=== PATIENT | male | born 1970 | race Two or more races ===

== ENCOUNTER 2023-04-20 21:44 | Inpatient (IN) | payer MEDICARE, OTHER ==
[~2023-04-20] VITALS: Ht 177.8 cm; Wt 90.7 kg
[2023-04-20 21:55] VITALS: O2SAT 100
--- NOTE | 2023-04-20 22:02 | NUR ---
URINE SPECIMEN COLLECTED AND SENT TO LAB.
--- NOTE | 2023-04-20 22:02 | NUR ---
COVID SWAB COLLECTED AND SENT TO LAB.
--- NOTE | 2023-04-20 22:02 | NUR ---
PATIENT PROVIDED WITH TWO WARM BLANKETS FOR COMFORT.
--- NOTE | 2023-04-20 22:09 | NUR ---
PT PROVIDED WITH WATER FOR COMFORT.
--- NOTE | 2023-04-20 22:10 | NUR ---
WIRE DRAWING MACHINE OPERATOR AT BEDSIDE
[2023-04-20 22:34] LABS: BILIRUBIN,URINE NEGATIVE (NEGATIVE); COLOR,URINE YELLOW (YELLOW); LEUKOCYTE ESTERASE ,URINE NEGATIVE (NEGATIVE); NITRITE, URINE NEGATIVE (NEGATIVE); PH,URINE 6.5 (5.0-8.0); PROTEIN,URINE NEGATIVE (NEGATIVE); UGLUCOSE NEGATIVE (NEGATIVE); UROBILINOGEN,URINE 0.2 EU/dL (0.2)
[2023-04-20 22:34] LABS: BASOPHILS % (AUTO) 0.7 % (0.0-2.0); EOSINOPHILS % (AUTO) 0.3 % (0.0-6.0); HEMATOCRIT 34 % (39-51); HEMOGLOBIN 11.6 g/dL (13.5-17.5); LYMPHOCYTES # (AUTO) 1.8 K/uL (0.8-4.8); LYMPHOCYTES % (AUTO) 36.1 % (20.0-44.0); MEAN CORPUSCULAR HGB CONC 34 g/dl (31.0-36.0); MEAN CORPUSCULAR VOLUME 91 fL (80-96); MONOCYTES # (AUTO) 0.5 K/uL (0.1-1.30); MONOCYTES % (AUTO) 10.2 % (2.0-12.0); NEUTROPHILS # (AUTO) 2.7 K/uL (1.8-8.9); NEUTROPHILS % (AUTO) 52.7 % (43.0-81.0); PLATELET COUNT (AUTO) 177 K/uL (150-450); RED BLOOD CELL COUNT(AUTO) 3.72 MIL/uL (4.5-6.0)
[2023-04-20 22:47] LABS: CALCIUM, SERUM 9.2 mg/dL (8.5-10.1); CARBON DIOXIDE 27 mmol/L (21-32); CHLORIDE 105 mmol/L (98-107); GLUCOSE 100 mg/dL (74-106); POTASSIUM 3.9 mmol/L (3.5-5.1); SODIUM SERUM 139 mmol/L (136-145); UREA NITROGEN, BLOOD 9 mg/dL (7-18)
[2023-04-20 22:55] LABS: ALANINE AMINOTRANSFERASE 35 U/L (12-78); ALBUMIN 3.6 g/dL (3.4-5.0); ALCOHOL, BLOOD < 3 mg/dL (0-10); ALKALINE PHOSPHATASE 69 U/L (46-116); ASPARTATE AMINOTRANSFERASE 14 U/L (15-37); BILIRUBIN,DIRECT 0.1 mg/dL (0.0-0.2); BILIRUBIN,TOTAL 0.4 mg/dL (0.2-1.0); TOTAL PROTEIN, SERUM 6.6 g/dL (6.4-8.2)
--- NOTE | 2023-04-20 23:30 | NUR ---
PT PROVIDED WITH APPLE JUICE FOR COMFORT.
[2023-04-21] MEDS ORDERED: NITR0.4T48 SL (00:16)
[2023-04-21] MEDS ORDERED: ZOLP5TAB8 PO (00:16)
[2023-04-21] MEDS ORDERED: VANC1FRO2 IV (00:16)
[2023-04-21] MEDS ORDERED: LEVE1000 PO (00:16)
[2023-04-21] MEDS ORDERED: QUET100T PO (00:16)
[2023-04-21] MEDS ORDERED: CALC-494 PO (00:16)
[2023-04-21] MEDS ORDERED: ACET325T53 PO (00:16)
[2023-04-21] MEDS ORDERED: IPRA3AMP23 IH (00:16)
[2023-04-21] MEDS ORDERED: CLON1PAT13 TD (00:16)
[2023-04-21] MEDS ORDERED: METO-357 PO (00:16)
[2023-04-21] MEDS ORDERED: MELA3TAB41 PO (00:16)
[2023-04-21] MEDS ORDERED: LORA-259 PO (00:16)
[2023-04-21] MEDS ORDERED: ENOX40DI SQ (00:16)
--- NOTE | 2023-04-21 01:17 | NUR ---
PT TO GO TO ROOM 220-B
--- NOTE | 2023-04-21 01:30 | NUR ---
REPORT GIVEN TO JULIAN DIAZ
[2023-04-21] MEDS ORDERED: BLOOD SUGAR DIAGNOSTIC 1 EACH STRIP IN ONE (02:30)
[2023-04-21] MEDS: ACETAMINOPHEN 325 MG TABLET PO PRN ×2 (02:30→11:01)
[2023-04-21] MEDS ORDERED: MAGNESIUM HYDROXIDE 30 ML UDC PO PRN (02:30)
[2023-04-21] MEDS ORDERED: MAG HYDROX/AL HYDROX/SIMETH 30 ML UDC PO PRN (02:30)
[2023-04-21] MEDS ORDERED: LORAZEPAM 1 MG TABLET PO PRN (02:30)
[2023-04-21 03:27] VITALS: BP 149/81; TEMP 97.4
--- NOTE | 2023-04-21 03:28 | NUR ---
GPS RN NOTE, PATIENT HAS A C/O OF CHRONIC MOUTH AND TOOTH PAIN AT 7 OUT 10 AND IS REQUESTING A STRONGER MEDICATION THAN TYLENOL. PAGED [facility] AND INFORMED DR GOLDMAN OF MY FINDINGS. DR GOLDMAN ORDERED IBUPROFEN 800MG PO Q8HR PRN. ALL ORDERS NOTED AND CARRIED OUT. WILL CONTINUE TO MONITOR THIS PATIENT WITH THE HELP OF STAFF.
[2023-04-21] MEDS ORDERED: IBUPROFEN 200 MG TABLET PO PRN (03:30)
--- NOTE | 2023-04-21 04:17 | NUR ---
MOLD PULLER ADMISSION NOTE: ADMITTED A 52-Y/O, MALE, FROM -[facility]. INITIALLY PT CAME FROM [facility]. ADMITTED ON A 5150 HOLD AND DANGER TO SELF. PER HOLD, PT. ADMITTED DUE TO SUICIDAL IDEATION AND WITH PATIENT PLANS TO DRINK POISON.PATIENT IS NEEDY ,DEMANDING,HYPERVERBAL. UPON FACE TO FACE EVALUATION, PATIENT IS ALERT AND ORIENTED X4, ON ROOM AIR .PATIENT ASSISTED ON TURNING AND REPOSITIONING Q2H FOR COMFORT AND CIRCULATION. SKIN ASSESSMENT DONE. SKIN INTACT. ALL BELONGINGS WERE CHECKED FOR CONTRABAND. PATIENT'S RIGHTS WERE DISCUSSED AND BOOKLET WAS GIVEN. CONTACTED DR. BUENROSTRO AND HOSPITALIST DR. VACA AND INFORMED THEM OF THE ADMISSION.PATIENT ORIENTATED TO ROOM ,FLOOR AND STAFF.PATIENT EDUCATED ON THE USE OF CALL MIXON. BED IN LOW AND LOCKED POSITION. PT UNABLE TO SIGN ADMITTING DOCUMENTS D/T AGGRESSIVE BEHAVIOR. SAFETY PRECAUTIONS MAINTAINED. WILL CONTINUE TO MONITOR Q15 MINS FOR MOOD, SAFETY AND BEHAVIOR.
--- NOTE | 2023-04-21 07:30 | NUR ---
RN OPENING NOTES RECEIVED PT ON A 5150 HOLD AND DANGER TO SELF. PER HOLD, PT. ADMITTED DUE TO SUICIDAL IDEATION AND WITH PATIENT PLANS TO DRINK POISON.PATIENT IS NEEDY ,DEMANDING,HYPERVERBAL. UPON FACE TO FACE EVALUATION, PATIENT IS ALERT AND ORIENTED X4, ON ROOM AIR .PATIENT ASSISTED ON TURNING AND REPOSITIONING Q2H FOR COMFORT AND CIRCULATION. WILL ADMINSITER ALL SCHEDULED MEDS ORDERED. WILL CONTINUE TO MONITOR FOR YEISON AND BEHAVIOR CHANGE.
[2023-04-21 08:00] VITALS: BP 140/76; TEMP 98; O2SAT 97
--- NOTE | 2023-04-21 10:02 | NUR ---
PRISCILLA Initial Discharge Note: Patient currently resides at [facility] located at [address] [place] [address]; ([phone]). PRISCILLA spoke with Mackenzie ozuna who stated that pt is welcomed back. PRISCILLA will discuss treatment plan with family. PRISCILLA will work with the MD, family, and treatment team.
--- NOTE | 2023-04-21 10:02 | NUR ---
PRISCILLA Clinical Note: Pt placed on a 5150 hold for danger to himself. Per hold, pt had a suicidal ideation and wanted to end his life on OD on poison. Patient currently resides at [facility] located at [address] [place] [address]; ([phone]). PRISCILLA spoke with Mackenzie ozuna who stated that pt is welcomed back. PRISCILLA will discuss treatment plan with family.
[2023-04-21] MEDS ORDERED: hydrOXYzine PAMOATE 25 MG CAPSULE PO PRN (10:30)
[2023-04-21] MEDS: clonazePAM 0.5 MG TABLET PO SCH ×3 (11:00→17:52)
[2023-04-21] MEDS: OLANZAPINE 2.5 MG TABLET PO SCH ×2 (11:01→17:52)
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
--- NOTE | 2023-04-21 12:53 | NUR ---
RN NOTES SEEN BY DR. OLIVAS, ORDERED TO D/C NELSON AND TAKE OUT MIDLINE.
--- NOTE | 2023-04-21 12:56 | NUR ---
RN NOTES REMOVED MIDLINE ACCESS. PRESSURE DRESSING APPLIED. NO SIGNS AND SYMPTOMS OF BLEEDING.
--- NOTE | 2023-04-21 12:59 | NUR ---
RN NOTES INFORMED DR. OLIVAS FOR MEDICATION RECONCILIATION
[2023-04-21] MEDS: DIVALPROEX SODIUM 250 MG TABLET.DR PO SCH ×2 (13:59→17:52)
[2023-04-21] MEDS ORDERED: IPRATROPIUM NEB FS 0.5 MG/2.5 ML AMPUL.NEB NEB PRN (14:30)
[2023-04-21] MEDS ORDERED: NITROGLYCERIN 0.4 MG/TAB BOTTLE SL SCH (14:30)
[2023-04-21] MEDS ORDERED: ALBUTEROL FS 2.5 MG/0.5 ML VIAL.NEB NEB PRN (14:30)
[2023-04-21] MEDS ORDERED: ACETAMINOPHEN 325 MG TABLET PO PRN (14:30)
[2023-04-21] MEDS: LEVETIRACETAM (250 MG) 250 MG TABLET PO SCH ×2 (15:00→21:21)
[2023-04-21] MEDS: CLONIDINE HCL 0.2MG/24H PTWK 1 EA PATCH TD SCH (15:35)
[2023-04-21 16:00] VITALS: BP 156/86; TEMP 98; O2SAT 96
[2023-04-21] MEDS: METOPROLOL SUCCINATE 50 MG TAB.SR.24H PO SCH (17:52)
--- NOTE | 2023-04-21 18:11 | NUR ---
GPS RN OPENING NOTES PT RESTING IN BED, ON A 5150 HOLD AND DANGER TO SELF DUE TO SUICIDAL IDEATION. PATIENT IS COOPERATIVE/UNCOOPERATIVE, EASILY IRRITABLE, VERY LABILE. PATIENT IS ALERT AND ORIENTED X4, ON ROOM AIR .PATIENT ASSISTED ON TURNING AND REPOSITIONING Q2H FOR COMFORT AND CIRCULATION. PT IS MED COMPLIANT, ALL MEDS GIVEN ORDERED. CLONIDINE PATCH ON LEFT UPPER ARM PLACED AT 1540 TODAY. NO IV ACCESS. WILL ENDORSE TO NEXT SHIFT.
[2023-04-21 20:00] VITALS: BP 142/71; TEMP 98.3; O2SAT 98
[2023-04-21] MEDS: CALCIUM CARBONATE 500 MG TAB.CHEW PO SCH (21:20)
[2023-04-21] MEDS: ZOLPIDEM TARTRATE 5 MG TABLET PO PRN (21:21)
[2023-04-22 07:22] LABS: BASOPHILS % (AUTO) 0.5 % (0.0-2.0); EOSINOPHILS % (AUTO) 0.1 % (0.0-6.0); HEMATOCRIT 35 % (39-51); HEMOGLOBIN 11.5 g/dL (13.5-17.5); LYMPHOCYTES # (AUTO) 1.3 K/uL (0.8-4.8); LYMPHOCYTES % (AUTO) 23.5 % (20.0-44.0); MEAN CORPUSCULAR HGB CONC 33 g/dl (31.0-36.0); MEAN CORPUSCULAR VOLUME 92 fL (80-96); MONOCYTES # (AUTO) 0.6 K/uL (0.1-1.30); MONOCYTES % (AUTO) 11.9 % (2.0-12.0); NEUTROPHILS # (AUTO) 3.5 K/uL (1.8-8.9); PLATELET COUNT (AUTO) 168 K/uL (150-450); RED BLOOD CELL COUNT(AUTO) 3.86 MIL/uL (4.5-6.0); WHITE BLOOD COUNT (AUTO) 5.4 K/uL (4.3-11.0)
[2023-04-22 07:51] LABS: CREATININE 0.8 mg/dL (0.6-1.3); POTASSIUM 4.1 mmol/L (3.5-5.1)
[2023-04-22 08:00] VITALS: BP 146/89; TEMP 97.8; O2SAT 100
[2023-04-22] MEDS: LEVETIRACETAM (250 MG) 250 MG TABLET PO SCH ×2 (09:14→21:09)
[2023-04-22] MEDS: DIVALPROEX SODIUM 250 MG TABLET.DR PO SCH ×3 (09:15→17:23)
[2023-04-22] MEDS: CALCIUM CARBONATE 500 MG TAB.CHEW PO SCH ×2 (09:15→21:09)
[2023-04-22] MEDS: METOPROLOL SUCCINATE 50 MG TAB.SR.24H PO SCH ×2 (09:15→17:24)
[2023-04-22] MEDS: OLANZAPINE 2.5 MG TABLET PO SCH ×2 (09:16→17:23)
[2023-04-22] MEDS: clonazePAM 0.5 MG TABLET PO SCH ×3 (09:16→17:24)
[2023-04-22] MEDS: ENOXAPARIN SODIUM 40 MG/0.4 ML DISP.SYRIN SQ SCH (09:18)
--- NOTE | 2023-04-22 14:00 | NUR ---
quiet,isolative,keeps to self in rm.
[2023-04-22 16:00] VITALS: BP 127/70; TEMP 97.8; O2SAT 98
--- NOTE | 2023-04-22 18:33 | NUR ---
keeping to self,appears depressed.
--- NOTE | 2023-04-22 19:30 | NUR ---
GPS RN NOTE, RECEIVED PATIENT AWAKE AND IN BED, NO S/S OR COMPLAINTS OF PAIN AT THIS TIME. PATIENT IS DISPLAYING NO S/S OF APPARENT DISTRESS AT THIS TIME. PATIENT BREATHING IS UNLABORED WITH EQUAL RISE AND FALL OF THE CHEST. PATIENT IS ALERT AND ORIENTED X 3 ON ROOM AIR WITH A SPO2 98%. PATIENT IS COMPLAINT WITH MEDICATIONS, ISOLATIVE, MAKES NEEDS KNOWN, MOTIVATED TO SELF CARE, AND COOPERATIVE. PATIENT DENIES SUICIDAL AND HOMICIDAL IDEATIONS AT THIS TIME. PATIENT ASSISTED WITH TURNING AND REPOSITIONING Q2HR AND PRN FOR COMFORT AND CIRCULATION. PATIENT HAS NO NEEDS AT THIS TIME. PATIENT EDUCATED ON THE USE OF THE CALL MIXON. PATIENT BED SIDE RAILS UP X 2 FOR SAFETY. PATIENT BED IS LOCKED, LOW, WITH BED ALARM ON. WILL CONTINUE TO MONITOR THIS PATIENT Q15 MINUTES WITH THE HELP OF STAFF TO MAINTAIN SAFETY.
[2023-04-22] MEDS: ZOLPIDEM TARTRATE 5 MG TABLET PO PRN (21:24)
--- NOTE | 2023-04-22 21:25 | NUR ---
GPS RN NOTE, PATIENT HAS A COMPLAINT OF NOT BEING ABLE TO SLEEP AND IS REQUESTING AMBIEN AT THIS TIME. PATIENT VITAL SIGNS ARE STABLE. GAVE AMBIEN 5MG PO HS PRN. WILL REASSESS FOR INSOMNIA AND I WILL CONTINUE TO MONITOR THIS PATIENT WITH THE HELP OF STAFF.
[2023-04-23 08:00] VITALS: BP 135/68; TEMP 97.8; O2SAT 99
[2023-04-23] MEDS: ENOXAPARIN SODIUM 40 MG/0.4 ML DISP.SYRIN SQ SCH ×2 (08:36→09:00)
[2023-04-23] MEDS: CALCIUM CARBONATE 500 MG TAB.CHEW PO SCH ×3 (08:36→21:34)
[2023-04-23] MEDS: DIVALPROEX SODIUM 250 MG TABLET.DR PO SCH ×3 (08:36→17:00)
[2023-04-23] MEDS: clonazePAM 0.5 MG TABLET PO SCH (08:37)
[2023-04-23] MEDS: LEVETIRACETAM (250 MG) 250 MG TABLET PO SCH ×3 (08:37→21:34)
[2023-04-23] MEDS: METOPROLOL SUCCINATE 50 MG TAB.SR.24H PO SCH ×3 (08:37→17:45)
[2023-04-23] MEDS: OLANZAPINE 2.5 MG TABLET PO SCH ×2 (08:37→17:46)
--- NOTE | 2023-04-23 11:15 | NUR ---
GPS/RN PT REFUSED AM MEDS. OFFERED X3. DR BUENROSTRO EVALUATED THE PATIENT WHO BECOME AGGRESSIVE AND NOT REDIRECTABLE. NEW ORDERS FROM DR BUENROSTRO RECEIVED AND CARRIED OUT
[2023-04-23] MEDS ORDERED: OLANZAPINE 10 MG VIAL IM ONE (11:30)
[2023-04-23 16:00] VITALS: BP 155/88; TEMP 97.6; O2SAT 100
[2023-04-23] MEDS: ZOLPIDEM TARTRATE 5 MG TABLET PO PRN (21:34)
[2023-04-24] MEDS: LORAZEPAM 1 MG TABLET PO PRN (00:21)
[2023-04-24 08:00] VITALS: BP 135/77; TEMP 98.7; O2SAT 100
[2023-04-24] MEDS: LEVETIRACETAM (250 MG) 250 MG TABLET PO SCH ×2 (08:04→21:22)
[2023-04-24] MEDS: CALCIUM CARBONATE 500 MG TAB.CHEW PO SCH ×2 (08:04→21:22)
[2023-04-24] MEDS: METOPROLOL SUCCINATE 50 MG TAB.SR.24H PO SCH ×2 (08:04→17:47)
[2023-04-24] MEDS: DIVALPROEX SODIUM 250 MG TABLET.DR PO SCH ×3 (08:04→17:47)
[2023-04-24] MEDS: OLANZAPINE 2.5 MG TABLET PO SCH ×2 (08:04→17:47)
[2023-04-24] MEDS: ENOXAPARIN SODIUM 40 MG/0.4 ML DISP.SYRIN SQ SCH (08:13)
[2023-04-24] MEDS ORDERED: BISA10SU11 RC (11:48)
[2023-04-24] MEDS ORDERED: MAGN400O6 PO (11:48)
[2023-04-24] MEDS ORDERED: NA P133E RC (11:48)
[2023-04-24] MEDS ORDERED: ALBU2.5V38 IH (11:48)
[2023-04-24] MEDS: TRIHEXYPHENIDYL HCL 2 MG TABLET PO SCH ×2 (12:09→17:47)
[2023-04-24 16:00] VITALS: BP 144/77; TEMP 98.7; O2SAT 99
--- NOTE | 2023-04-24 19:00 | NUR ---
RN- CLOSING NOTES PATIENT AWAKE, RESTING IN BED, BREATHING EVEN AND NON LABORED WITH NO S/S OF DISTRESS. PATIENT IS COOPERATIVE, GUARDED, ANXIOUS, DEPRESSED, LABILE, AND SUSPICIOUS. PATIENT IS MEDICATION COMPLIANT. WILL CONTINUE TO MONITOR Q 15 MINUTES FOR SAFETY AND BEHAVIOR.
[2023-04-24 20:55] VITALS: BP 148/75; TEMP 98.3; O2SAT 97
[2023-04-24] MEDS: ZOLPIDEM TARTRATE 5 MG TABLET PO PRN (22:58)
[2023-04-25 08:00] VITALS: BP 149/89; TEMP 97.7; O2SAT 98
[2023-04-25] MEDS: OLANZAPINE 2.5 MG TABLET PO SCH ×2 (08:18→17:26)
[2023-04-25] MEDS: LEVETIRACETAM (250 MG) 250 MG TABLET PO SCH ×2 (08:18→20:28)
[2023-04-25] MEDS: METOPROLOL SUCCINATE 50 MG TAB.SR.24H PO SCH ×2 (08:19→17:26)
[2023-04-25] MEDS: LORAZEPAM 1 MG TABLET PO PRN ×2 (08:19→20:27)
[2023-04-25] MEDS: CALCIUM CARBONATE 500 MG TAB.CHEW PO SCH ×2 (08:19→20:27)
[2023-04-25] MEDS: DIVALPROEX SODIUM 250 MG TABLET.DR PO SCH ×3 (08:19→17:25)
[2023-04-25] MEDS: TRIHEXYPHENIDYL HCL 2 MG TABLET PO SCH ×3 (08:19→17:25)
[2023-04-25] MEDS: ENOXAPARIN SODIUM 40 MG/0.4 ML DISP.SYRIN SQ SCH (08:33)
--- NOTE | 2023-04-25 11:41 | NUR ---
Court Hearing: Patient's court hearing for 1110 was today and it was upheld for GD.
--- NOTE | 2023-04-25 11:41 | NUR ---
Court Notification: PRISCILLA contacted pt's aunt Yesi ([phone]) and notified of 5250 hearing.
[2023-04-25 16:00] VITALS: BP 125/74; TEMP 98.5; O2SAT 98
--- NOTE | 2023-04-25 16:26 | NUR ---
RN-CO: Patient requested for REGULAR DIET, I DISCUSSED THE RISK SINCE HE HAS HTN, PT STATED " I STILL PREFERS THE REGULAR DIET." " I AM AWARE THAT MY BP CAN BE HIGH."
[2023-04-25] MEDS: ZOLPIDEM TARTRATE 5 MG TABLET PO PRN (21:15)
[2023-04-26 08:00] VITALS: BP 127/74; TEMP 98.7; O2SAT 98
--- NOTE | 2023-04-26 08:05 | NUR ---
GPS RN NOTE:. PT RESTING IN BED, AOX3 PATIENT IS COOPERATIVE/UNCOOPERATIVE, EASILY IRRITABLE, VERY LABILE, ISOLATIVE, AND ANXIOUS. ON ROOM AIR .PATIENT ASSISTED ON TURNING AND REPOSITIONING Q2H FOR COMFORT AND CIRCULATION. PT IS MED COMPLIANT, ALL MEDS GIVEN ORDERED. VISUAL CHECK [id number] FOR SAFETY AND BEHAVIOR. BED KEPT LOW AND LOCK FOR SAFETY.
[2023-04-26] MEDS: CALCIUM CARBONATE 500 MG TAB.CHEW PO SCH ×2 (08:54→21:47)
[2023-04-26] MEDS: OLANZAPINE 2.5 MG TABLET PO SCH ×2 (08:54→16:57)
[2023-04-26] MEDS: TRIHEXYPHENIDYL HCL 2 MG TABLET PO SCH ×3 (08:54→17:08)
[2023-04-26] MEDS: METOPROLOL SUCCINATE 50 MG TAB.SR.24H PO SCH ×2 (08:54→16:58)
[2023-04-26] MEDS: LEVETIRACETAM (250 MG) 250 MG TABLET PO SCH ×2 (08:55→21:47)
[2023-04-26] MEDS: ENOXAPARIN SODIUM 40 MG/0.4 ML DISP.SYRIN SQ SCH (08:55)
[2023-04-26] MEDS: DIVALPROEX SODIUM 250 MG TABLET.DR PO SCH ×3 (08:57→16:57)
--- NOTE | 2023-04-26 10:41 | NUR ---
GPS RN NOTE: PER DR. BUENROSTRO "Uncooperative, Impulsive, Other (Patient asked to talk to me so I went to hiss room with the Socail worker only for him to stair at me angrlly and not to talke at all so I told him that he need to till me what is going on , he continue to stair with clenched feast and angry demenar . I decide to leave for safty and he started to shout and yell at me and thretning but I was able to leave saflly with the geriatric social work professor and order IM" IM MEDICATION GIVEN ORDERED BY DR. BUENROSTRO. NO RESISTANT FROM PT.
[2023-04-26] MEDS ORDERED: OLANZAPINE 10 MG VIAL IM ONE (11:00)
[2023-04-26 16:00] VITALS: BP 141/76; TEMP 98.6; O2SAT 96
[2023-04-26 20:00] VITALS: BP 141/76; TEMP 97.8; O2SAT 97
[2023-04-26] MEDS: ZOLPIDEM TARTRATE 5 MG TABLET PO PRN (22:23)
--- NOTE | 2023-04-27 06:36 | NUR ---
GPS RN NOTES PATIENT IN BED SLEEPING. EASILY WAKEN BY VERBAL STIMULI. A/O X 4, ABLE TO MAKE NEEDS KNOWN. PATIENT IS COOPERATIVE. PATIENT IS AMBULATORY WITH STEADY GAIT. NO S/S OF DISTRESS/ SOB NOTED. ALL DUE MEDS (WHOLE PILL) GIVEN. SAFETY MEASURES MAINTAINED. WILL ENDORSE TO THE NEXT SHIFT.
[2023-04-27 08:00] VITALS: BP 134/74; TEMP 98; O2SAT 99
[2023-04-27] MEDS: ENOXAPARIN SODIUM 40 MG/0.4 ML DISP.SYRIN SQ SCH (08:02)
[2023-04-27] MEDS: DIVALPROEX SODIUM 250 MG TABLET.DR PO SCH (08:02)
[2023-04-27] MEDS: OLANZAPINE 2.5 MG TABLET PO SCH ×2 (08:02→17:20)
[2023-04-27] MEDS: LEVETIRACETAM (250 MG) 250 MG TABLET PO SCH ×2 (08:02→21:04)
[2023-04-27] MEDS: METOPROLOL SUCCINATE 50 MG TAB.SR.24H PO SCH ×2 (08:03→17:20)
[2023-04-27] MEDS: TRIHEXYPHENIDYL HCL 2 MG TABLET PO SCH ×3 (08:03→17:20)
[2023-04-27] MEDS: CALCIUM CARBONATE 500 MG TAB.CHEW PO SCH ×2 (08:03→21:04)
--- NOTE | 2023-04-27 15:43 | NUR ---
SW NOTE: SW ATTEMPTED TO SPEAK TO PT AND PT APPEARED GUARDED AND ANGRY. UNABLE TO SPEAK TO PT.
--- NOTE | 2023-04-27 15:44 | NUR ---
PRISCILLA FAMILY CONTACT: SW CONTACTED PT'S AUNT DAYANNA ([phone]) AND AUNT STATED THAT PT HAS A BEHAVIOR THAT HE FILES FOR A COMPLAINT ON MULTIPLE STAFF MEMBERS BECAUSE THIS IS HIS BEHAVIOR.
[2023-04-27 16:00] VITALS: BP 143/85; TEMP 97.8; O2SAT 98
[2023-04-27] MEDS: DIVALPROEX SODIUM 500 MG TABLET.DR PO SCH (17:21)
--- NOTE | 2023-04-27 18:56 | NUR ---
RN- CLOSING NOTES PATIENT AWAKE, RESTING IN BED, BREATHING EVEN AND NON LABORED WITH NO S/S OF DISTRESS. PATIENT IS COOPERATIVE, GUARDED, DEPRESSED, ANXIOUS, LABILE, SUSPICIOUS, AND ISOLATIVE. PATIENT IS MEDICATION COMPLIANT. ENCOURAGED PATIENT TO LEAVE ROOM AND SOCIALIZE WITH STAFF, PATIENT REFUSED. DENIES SI/HI AT THIS TIME. WILL CONTINUE TO MONITOR Q 15 MINUTES FOR SAFETY AND BEHAVIOR.
[2023-04-27 20:00] VITALS: BP 135/75; TEMP 98; O2SAT 98
[2023-04-28 08:00] VITALS: BP 126/75; TEMP 97.9; O2SAT 98
[2023-04-28] MEDS: ENOXAPARIN SODIUM 40 MG/0.4 ML DISP.SYRIN SQ SCH (08:17)
[2023-04-28] MEDS: DIVALPROEX SODIUM 500 MG TABLET.DR PO SCH ×2 (08:20→17:08)
[2023-04-28] MEDS: LEVETIRACETAM (250 MG) 250 MG TABLET PO SCH ×2 (08:20→20:23)
[2023-04-28] MEDS: CALCIUM CARBONATE 500 MG TAB.CHEW PO SCH ×2 (08:20→20:23)
[2023-04-28] MEDS: METOPROLOL SUCCINATE 50 MG TAB.SR.24H PO SCH ×2 (08:21→17:08)
[2023-04-28] MEDS: TRIHEXYPHENIDYL HCL 2 MG TABLET PO SCH ×3 (08:21→17:08)
[2023-04-28] MEDS: OLANZAPINE 2.5 MG TABLET PO SCH ×2 (08:21→17:08)
[2023-04-28] MEDS: CLONIDINE HCL 0.2MG/24H PTWK 1 EA PATCH TD SCH (15:23)
[2023-04-28 16:00] VITALS: BP 135/88; TEMP 97.8; O2SAT 97
[2023-04-29 08:00] VITALS: BP 151/83; TEMP 97.7; O2SAT 96
[2023-04-29] MEDS: TRIHEXYPHENIDYL HCL 2 MG TABLET PO SCH ×3 (08:36→17:04)
[2023-04-29] MEDS: OLANZAPINE 2.5 MG TABLET PO SCH ×2 (08:36→16:43)
[2023-04-29] MEDS: DIVALPROEX SODIUM 500 MG TABLET.DR PO SCH ×2 (08:36→16:43)
[2023-04-29] MEDS: CALCIUM CARBONATE 500 MG TAB.CHEW PO SCH ×2 (08:36→21:50)
[2023-04-29] MEDS: METOPROLOL SUCCINATE 50 MG TAB.SR.24H PO SCH ×2 (08:36→16:44)
[2023-04-29] MEDS: LEVETIRACETAM (250 MG) 250 MG TABLET PO SCH ×2 (08:36→21:52)
[2023-04-29] MEDS: ENOXAPARIN SODIUM 40 MG/0.4 ML DISP.SYRIN SQ SCH (08:37)
[2023-04-29 16:00] VITALS: BP 136/87; TEMP 98.1; O2SAT 100
[2023-04-29 20:00] VITALS: BP 132/76; TEMP 98.1; O2SAT 97
[2023-04-29] MEDS: ZOLPIDEM TARTRATE 5 MG TABLET PO PRN (21:54)
--- NOTE | 2023-04-30 03:20 | NUR ---
2154 Ambien 5mg given per patient requested. Patient calm and comfortable in bed. No sign of distress or discomfort noted. Will continue monitor.
[2023-04-30] MEDS: TRIHEXYPHENIDYL HCL 2 MG TABLET PO SCH ×3 (07:59→17:32)
[2023-04-30 08:00] VITALS: BP 126/60; TEMP 98; O2SAT 96
[2023-04-30] MEDS: ENOXAPARIN SODIUM 40 MG/0.4 ML DISP.SYRIN SQ SCH (09:56)
[2023-04-30] MEDS: METOPROLOL SUCCINATE 50 MG TAB.SR.24H PO SCH ×2 (09:57→17:32)
[2023-04-30] MEDS: DIVALPROEX SODIUM 500 MG TABLET.DR PO SCH ×2 (09:57→17:32)
[2023-04-30] MEDS: CALCIUM CARBONATE 500 MG TAB.CHEW PO SCH ×2 (09:57→20:24)
[2023-04-30] MEDS: LEVETIRACETAM (250 MG) 250 MG TABLET PO SCH ×2 (09:58→20:25)
[2023-04-30] MEDS: OLANZAPINE 2.5 MG TABLET PO SCH ×2 (09:58→17:32)
[2023-04-30 16:00] VITALS: BP 130/66; TEMP 98.1; O2SAT 98
--- NOTE | 2023-04-30 18:37 | NUR ---
RN- CLOSING NOTES PATIENT AWAKE, RESTING IN BED, BREATHING EVEN AND NON LABORED WITH NO S/S OF DISTRESS. PATIENT IS COOPERATIVE, GUARDED, ANXIOUS, DEPRESSED, SUSPICIOUS, FORGETFUL, AND ISOLATIVE. PATIENT IS MEDICATION COMPLAINT. ENCOURAGED PATIENT TO LEAVE ROOM AND SOCIALIZE WITH STAFF, PATIENT REFUSED.DENIES SI/HI AT THIS TIME. WILL CONTINUE TO MONITOR Q 15 MINUTES FOR SAFETY AND BEHAVIOR.
--- NOTE | 2023-04-30 19:30 | NUR ---
GPS RN OPENING NOTE RECEIVED PATIENT AWAKE IN BED. PT STABLE ON ROOM AIR. NO SOB OR S/S OF RESPIRATORY DISTRESS. BREATHING EVEN AND UNLABORED.PATIENT IS COOPERATIVE, GUARDED, ANXIOUS, DEPRESSED, SUSPICIOUS, FORGETFUL, ISOLATIVE, AND MED COMPLIANT. DENIES SI/HI AT THIS TIME. WILL CONTINUE TO MONITOR Q15MIN FOR SAFETY AND BEHAVIOR.
--- NOTE | 2023-04-30 20:39 | NUR ---
RN NOTE COVID TEST DONE AND SENT TO LAB.
[2023-04-30 21:17] VITALS: BP 140/78; TEMP 98.1; O2SAT 97
[2023-05-01] MEDS: ZOLPIDEM TARTRATE 5 MG TABLET PO PRN (01:22)
--- NOTE | 2023-05-01 01:24 | NUR ---
RN NOTE PT COMPLAINED OF INSOMNIA. ADMINISTERED AMBIEN 5 MG FOR INSOMNIA ORDERED. MADE COMFORTABLE IN BED. ALL NEEDS MET AT THIS TIME.
--- NOTE | 2023-05-01 07:38 | NUR ---
RN OPENING NOTE RECEIVED PATIENT AWAKE IN BED, STABLE ON ROOM AIR. NO SOB OR S/S OF RESPIRATORY DISTRESS. BREATHING EVEN AND UNLABORED. PATIENT IS COOPERATIVE, GUARDED, NEEDY, ATTENTION SEEKING, ANXIOUS, LABILE, SUSPICIOUS AND ISOLATIVE. DENIES SI/HI AT THIS TIME. WILL CONTINUE TO MONITOR Q15MIN FOR SAFETY AND BEHAVIOR.
[2023-05-01 08:00] VITALS: BP 123/60; TEMP 98.5; O2SAT 97
--- NOTE | 2023-05-01 08:22 | NUR ---
SW Discharge Note: Patient will be discharged to [facility] located at [address] [place] [id number]; ([phone]) via ambulance. Mackenzie ozuna from [facility] ([phone]) accepted pt and is welcoming pt today. Pts aunt DPOA aunt Yesi ([phone]) is aware and agreeable of discharge. Pt appears to be alert and oriented x3. Pt denies visual/auditory hallucinations. Pt denies suicidal or homicidal ideation. Patient will continue to follow-up with (Psychiatrist) Dr. Vieira at the facility [address] [place] [address]; ([phone]) and ([place]) Dr. Venegas [address] [place] [address] [address], [place] [address]; ([phone]).
[2023-05-01] MEDS: TRIHEXYPHENIDYL HCL 2 MG TABLET PO SCH ×2 (08:51→12:45)
[2023-05-01] MEDS: DIVALPROEX SODIUM 500 MG TABLET.DR PO SCH (08:51)
[2023-05-01 08:52] VITALS: BP 123/60
[2023-05-01] MEDS: METOPROLOL SUCCINATE 50 MG TAB.SR.24H PO SCH (08:52)
[2023-05-01] MEDS: OLANZAPINE 2.5 MG TABLET PO SCH (08:52)
[2023-05-01] MEDS: LEVETIRACETAM (250 MG) 250 MG TABLET PO SCH (08:54)
[2023-05-01] MEDS: CALCIUM CARBONATE 500 MG TAB.CHEW PO SCH (08:54)
[2023-05-01] MEDS: ENOXAPARIN SODIUM 40 MG/0.4 ML DISP.SYRIN SQ SCH (08:55)
--- NOTE | 2023-05-01 14:38 | NUR ---
DISCHARGE NOTE PATIENT DISCHARGE IN STABLE CONDITION. VITAL SIGNS TAKEN AND RECORDED. NO IV ACCESS, NAME ARM BAND REMOVED. ALL BELONGINGS CHECKED AND BELONGINGS LIST SIGNED. INSTRUCTED PATIENT IN CASE OF EMERGENCY TO CALL 911 OR GO TO THE NEAREST ER. INSTRUCTED TO CONTINUE TAKING HOME MEDICATION AND ELIMINATE ALCOHOLIC DRINKS. PATIENT REFUSED SKIN ASSESSMENT AND PHOTOS. PATIENT VERBALIZED UNDERSTANDING. REPORT GIVEN TO DARIAN AT [facility]. PATIENT LEFT VIA GURNEY WITH NO SIGNS OF DISTRESS ACCOMPANIED BY 3 BOAT BUILDER AND REPAIRER. CHARGE NURSE AWARE OF DISCHARGED.
== END 2023-05-01 14:50 | DRG 885 ==
LOC: ER 21:49 → GPS 04-21 01:31
PROVIDERS: ADMIT Psychiatry & Neurology Psychiatry
DX: F25.0 Schizoaffective disorder, bipolar type (principal); R45.851 Suicidal ideations; F60.9 Personality disorder, unspecified; G40.909 Epilepsy, unspecified, not intractable, without status epilepticus; E03.9 Hypothyroidism, unspecified; Z79.899 Other long term (current) drug therapy; E11.9 Type 2 diabetes mellitus without complications; D64.9 Anemia, unspecified; I10 Essential (primary) hypertension; F41.9 Anxiety disorder, unspecified; T43.595D Adverse effect of other antipsychotics and neuroleptics, subsequent encounter
CPT/HCPCS: 36415; 80048-TC; 80061-TC; 80076-TC; 80164-TC; 82962-TC; 85025-TC; 87081-TC; 97116-TC; 97530-TC; C9803; G0480; J1650; J3490